=== PATIENT | female | born 1990 | race Caucasian/White ===

== ENCOUNTER 2022-11-05 13:28 | Inpatient (IN) | payer MEDICAID ==
[~2022-11-05] VITALS: Ht 165.1 cm; Wt 112.5 kg
[2022-11-05] MEDS ORDERED: LISINOPRIL40 MG PO (13:52)
[2022-11-05] MEDS ORDERED: HYDR25T PO (13:52)
[2022-11-05] MEDS ORDERED: ROPINIROLE HYD0.5 MG PO (13:53)
[2022-11-05] MEDS ORDERED: CYMBALTA60 MG PO (13:54)
[2022-11-05] MEDS ORDERED: ONCE-DAILY WEL300 MG PO (13:55)
[2022-11-05] MEDS ORDERED: TENORMIN50 MG PO (13:56)
[2022-11-05] MEDS ORDERED: NALTREXONE50 MG PO (13:56)
[2022-11-05] MEDS ORDERED: METFORMIN HYDR500 MG PO (13:57)
[2022-11-05 14:00] VITALS: BP 156/96
[2022-11-05 15:12] LABS: BASO # 0.1 10*3/uL (0.0-0.1); BASO % 0.7 % (0.0-1.0); EOS # 0.2 10*3/uL (0.0-0.4); EOS % 1.7 % (1.0-4.0); HEMATOCRIT 43.1 % (37.0-47.0); LYMPH # 3.6 10*3/uL (1.3-4.4); LYMPH % 33.2 % (27.0-41.0); MEAN CORPUSCULAR HGB 29.2 pg (27.0-31.0); MEAN CORPUSCULAR HGB CONC 33.2 g/dl (33.0-37.0); MEAN PLATELET VOLUME 10.2 fl (9.6-12.3); MONO # 0.6 10*3/uL (0.1-1.0); MONO % 5.9 % (3.0-9.0); NEUT # 6.4 10*3/uL (2.3-7.9); NEUT % 58.1 % (47.0-73.0); PLATELET COUNT AUTOMATED 373 10*3/uL (130-400); RED CELL DISTRI WIDTH 12.7 % (0-14.5); WHITE BLOOD COUNT 10.9 10*3/uL (4.8-10.8)
[2022-11-05 15:28] LABS: ALKALINE PHOSPHATASE 37 U/L (46-116); BUN 8 mg/dl (9-23); CHLORIDE 104 mmol/L (98-107); POTASSIUM 3.7 mmol/L (3.4-5.1); SGPT/ALT 22 U/L (10-49); TOTAL PROTEIN 7.2 gm/dL (6.0-8.0)
[2022-11-05 15:29] LABS: ACT PARTIAL THROMBO TIME 27.1 SECONDS (20.0-32.1)
[2022-11-05 15:47] LABS: BILIRUBIN Negative (Negative); BLOOD Negative (Negative); CLARITY Clear (Clear); COLOR Yellow (Yellow); GLUCOSE Negative (Negative); KETONE Negative (Negative); LEUKO ESTERASE Negative (Negative); NITRITE Negative (Negative); UROBILINOGEN 0.2 E.U./dl (0.0-1.0)
[2022-11-05 15:54] LABS: URINE AMPHETAMINES Positive (1000ng/ml); URINE BARBITURATES Negative (200ng/ml); URINE BENZODIAZEPINES Negative (200ng/ml); URINE CANNABINOIDS (THC) Negative (50ng/ml); URINE COCAINE Positive (300ng/ml); URINE METHADONE Negative (300ng/ml); URINE OPIATES Negative (300ng/ml); URINE PHENCYCLIDINE Negative (25ng/ml)
[2022-11-05 16:00] VITALS: BP 117/63
[2022-11-05 16:48] LABS: RBC 0-2 rbc/hpf (0-2); WBC 0-2 wbc/hpf (0-5)
[2022-11-05 20:00] VITALS: BP 117/65
[2022-11-06] VITALS: BP 108/55
[2022-11-06 06:02] LABS: BASO # 0.1 10*3/uL (0.0-0.1); BASO % 0.6 % (0.0-1.0); EOS # 0.3 10*3/uL (0.0-0.4); HEMATOCRIT 41.6 % (37.0-47.0); LYMPH # 3.4 10*3/uL (1.3-4.4); LYMPH % 41.7 % (27.0-41.0); MEAN CELL VOLUME 89.7 fl (81.0-99.0); MEAN CORPUSCULAR HGB 29.3 pg (27.0-31.0); MEAN CORPUSCULAR HGB CONC 32.7 g/dl (33.0-37.0); MEAN PLATELET VOLUME 10.5 fl (9.6-12.3); MONO # 0.7 10*3/uL (0.1-1.0); NEUT # 3.8 10*3/uL (2.3-7.9); NEUT % 46.2 % (47.0-73.0); PLATELET COUNT AUTOMATED 328 10*3/uL (130-400); RED BLOOD COUNT 4.64 10*6/uL (4.10-5.10); RED CELL DISTRI WIDTH 12.6 % (0-14.5); WHITE BLOOD COUNT 8.2 10*3/uL (4.8-10.8)
[2022-11-06 06:12] LABS: ACT PARTIAL THROMBO TIME 26.2 SECONDS (20.0-32.1); INTERNATIONAL NORM RATIO 0.9 (2.0-3.5)
[2022-11-06 06:57] LABS: ALKALINE PHOSPHATASE 42 U/L (46-116); BUN 9 mg/dl (9-23); CHLORIDE 102 mmol/L (98-107); POTASSIUM 3.4 mmol/L (3.4-5.1); SGPT/ALT 19 U/L (10-49)
[2022-11-06 08:00] VITALS: BP 135/83
[2022-11-06 12:00] VITALS: BP 109/54
[2022-11-06 16:00] VITALS: BP 107/64
[2022-11-06 20:00] VITALS: BP 99/50
[2022-11-07] VITALS: BP 108/69
[2022-11-07 08:00] VITALS: BP 103/57
[2022-11-07 12:00] VITALS: BP 100/46
[2022-11-07 16:00] VITALS: BP 143/77
[2022-11-07 20:00] VITALS: BP 112/65
[2022-11-08] VITALS: BP 108/46
[2022-11-08 08:00] VITALS: BP 98/51
[2022-11-08] MEDS ORDERED: METHOCARBAMOL750 M1 PO (08:15)
[2022-11-08] MEDS ORDERED: VITAMIN D350 MC2 PO (08:15)
== END 2022-11-08 10:39 | disposition home or self-care (01) | DRG 774 ==
LOC: 5E 13:28
PROVIDERS: Internal Medicine; ADMIT Internal Medicine; ATTEND Internal Medicine
DX: F15.10 Other stimulant abuse, uncomplicated (principal); F41.9 Anxiety disorder, unspecified; F14.10 Cocaine abuse, uncomplicated; E11.9 Type 2 diabetes mellitus without complications; I10 Essential (primary) hypertension; D72.829 Elevated white blood cell count, unspecified; Z71.6 Tobacco abuse counseling; Z88.2 Allergy status to sulfonamides; Z79.899 Other long term (current) drug therapy; Z79.84 Long term (current) use of oral hypoglycemic drugs